=== PATIENT | male | born 1945 | race African-American/Black ===

== ENCOUNTER → 2017-02-19 | Outpatient (CLI) | payer MEDICARE ==
--- NOTE | 2017-02-19 12:45 | RADIOLOGY REPORT (SQ) ---
EXAM DESCRIPTION: KNEE LEFT 4 VIEWS COMPLETED DATE/TIME: 02/19/2017 11:53 am REASON FOR STUDY: PAIN IN LEFT KNEE M25.562 PAIN IN LEFT KNEE R07.89 OTHER CHEST PAIN COMPARISON: None. NUMBER OF VIEWS: Four views. TECHNIQUE: AP, lateral, and both oblique radiographic images acquired of the left knee. LIMITATIONS: None. FINDINGS: MINERALIZATION: Mild osteopenia BONES: No acute fracture or dislocation. No worrisome bone lesions. No significant osteophytes. JOINT: No joint effusion. Moderate to severe degenerative compromise medial joint compartment. Renetta re degenerative narrowing patellofemoral joint. OTHER: No other significant finding. IMPRESSION: No acute findings. Moderate to severe degenerative compromise medial joint compartment and severe degenerative narrowing patellofemoral joint. TECHNICAL DOCUMENTATION: JOB ID: [id number] [employer]- All Rights Reserved
--- NOTE | 2017-02-19 12:46 | RADIOLOGY REPORT (SQ) ---
EXAM DESCRIPTION: CHEST PA/LATERAL COMPLETED DATE/TIME: 02/19/2017 11:53 am REASON FOR STUDY: OTHER CHEST PAIN COMPARISON: 05/17/2011 NUMBER OF VIEWS: Two view. TECHNIQUE: Frontal and lateral radiographic views of the chest acquired. LIMITATIONS: None. FINDINGS: LUNGS AND PLEURA: No opacities, masses or pneumothorax. No pleural effusion. MEDIASTINUM AND HILAR STRUCTURES: No masses or contour abnormalities. HEART AND VASCULATURE: Heart normal size. No evidence for failure. BONY STRUCTURES: No acute findings. HARDWARE: None. OTHER: No other significant finding. IMPRESSION: NO SIGNIFICANT RADIOGRAPHIC FINDING IN THE CHEST. TECHNICAL DOCUMENTATION: JOB ID: [id number] [employer]- All Rights Reserved
== END ==
LOC: OD 11:11
PROVIDERS: ATTEND Family Medicine
DX: M25.562 Pain in left knee (principal); R07.89 Other chest pain
CPT/HCPCS: 71020

== ENCOUNTER 2020-02-05 10:19 | Emergency (ER) | payer MEDICARE, OTHER ==
[2020-02-05] MEDS ORDERED: DILTIAZEM HCL/D5W 125 MG/125 ML RTUINJ IV PRN (11:11)
[2020-02-05] MEDS ORDERED: DILTIAZEM HCL INJ 25 MG/5 ML VIAL IV ONE (11:11)
[2020-02-05 11:33] LABS: INTERNATIONAL RATION (INR) 1.18; PROTHROMBIN TIME 15.2 SEC (11.4-15.4)
[2020-02-05 11:34] LABS: PARTIAL THROMBOPLASTIN TIME 33.3 SEC (23.5-35.8)
[2020-02-05 11:44] LABS: ABSOLUTE EOSINOPHILS # (AUTO) 0.1 10^3/uL (0.0-0.6); ABSOLUTE LYMPHOCYTES (AUTO) 0.6 10^3/uL (0.5-4.7); ABSOLUTE MONOCYTES (AUTO) 0.4 10^3/uL (0.1-1.4); ABSOLUTE NEUT (AUTO) 3.4 10^3/uL (1.7-8.2); BASOPHILS % (AUTO) 0.6 % (0-2); EOSINOPHILS % (AUTO) 2.4 % (0-6); HEMATOCRIT 36.8 % (37.9-51.0); MEAN CORPUSCULAR HEMOGLOBIN 27.6 pg (27.0-33.4); MEAN CORPUSCULAR HGB CONC 32.6 g/dL (32.0-36.0); MEAN CORPUSCULAR VOLUME 85 fl (80-97); MONOCYTES % (AUTO) 8.1 % (3-13); PLATELET COUNT 232 10^3/uL (150-450); RED BLOOD COUNT 4.35 10^6/uL (4.35-5.55); RED CELL DISTRIBUTION WIDTH 15.7 % (11.5-14.0); SEGMENTED NEUTROPHILS % (AUTO) 75.9 % (42-78); TOTAL CELLS COUNTED % (AUTO) 100 %; WHITE BLOOD COUNT 4.5 10^3/uL (4.0-10.5)
[2020-02-05 11:48] LABS: ALBUMIN 3.9 g/dL (3.5-5.0); ALKALINE PHOSPHATASE 81 U/L (38-126); ANION GAP 8 (5-19); ASPARTATE AMINO TRANSFERASE 70 U/L (17-59); BILIRUBIN,DIRECT 0.3 mg/dL (0.0-0.4); BILIRUBIN,TOTAL 0.9 mg/dL (0.2-1.3); BLOOD UREA NITROGEN 19 mg/dL (7-20); CALCIUM 9.7 mg/dL (8.4-10.2); CARBON DIOXIDE 24 mmol/L (22-30); CHLORIDE 106 mmol/L (98-107); CREATINE KINASE 174 U/L (55-170); GLUCOSE 149 mg/dL (75-110); POTASSIUM 4.1 mmol/L (3.6-5.0); TOTAL PROTEIN 6.5 g/dL (6.3-8.2)
--- NOTE | 2020-02-05 11:49 | RADIOLOGY REPORT (SQ) ---
EXAM DESCRIPTION: CHEST SINGLE VIEW IMAGES COMPLETED DATE/TIME: 02/05/2020 11:27 am REASON FOR STUDY: cp COMPARISON: 02/19/2017 EXAM PARAMETERS: NUMBER OF VIEWS: One view. TECHNIQUE: Single frontal radiographic view of the chest acquired. RADIATION DOSE: NA LIMITATIONS: None. FINDINGS: LUNGS AND PLEURA: No opacities, masses or pneumothorax. No pleural effusion. MEDIASTINUM AND HILAR STRUCTURES: No masses. Contour normal. HEART AND VASCULAR STRUCTURES: Heart normal in size. Normal vasculature. BONES: No acute findings. HARDWARE: None in the chest. OTHER: No other significant finding. IMPRESSION: NO ACUTE RADIOGRAPHIC FINDING IN THE CHEST. TECHNICAL DOCUMENTATION: JOB ID: [id number] 2010 [employer]- All Rights Reserved Reading location - IP/workstation name: [email or web address]
[2020-02-05 11:59] LABS: CREATINE KINASE MB 4.71 ng/mL (<4.55); TROPONIN I 0.02 ng/mL
--- NOTE | 2020-02-05 13:49 | ER Document Report ---
ED General - General Chief Complaint: Chest Tightness Stated Complaint: CHEST TIGHTNESS Time Seen by Provider: 02/05/20 11:04 Primary Care Provider: MARTELL BLOCK DO [Primary Care Provider] - Follow up as needed TRAVEL OUTSIDE OF THE [place] IN LAST 30 DAYS: No - HPI Notes: Chief complaint: Shortness of breath, chest tightness and rapid heartbeat History of present illness: Mr. Santosh James is a 74-year-old male who pres ents today having awakened this morning with palpitations, chest tightness and dyspnea with minimal exertion. This man has a history of prostatic CA and was apparently recently admitted to the urology service at [facility] for a cystoscopy. He was found to be in new atrial fibrillation asymptomatic at that time and was apparently seen by cardiology for cardioversion. He apparently went back into atrial fibrillation and was subsequently discharged home on diltiazem 120 mg twice daily. He has an outpatient appointment to see a filler shredder helper for follow-up but is unable to tell me the filler shredder helper name. He was not entirely sure of his other current medications. He is a very poor historian. Patient states that prior to his recent episode of atrial fib he is not aware of any history of heart disease. He does have a history of hypertension. He is type II diabetic. He is a former smoker. There is cardiac disease in his family. He denies any known history of thromboembolic disease. - Related Data Allergies/Adverse Reactions: No Known Allergies Allergy (Verified 04/08/16 05:32) Home Medications: Cardizem 60mg 2 tabs twice daily. Eliquis 5mg BID. Aspirin 81mg daily. Atorvastatin 40mg 1/2 tab hs. Eligard testosterone q 6months. Metformin 500 BID. Zytgia 1 in am. Prednisonce 1 AM Past Medical History - General Information source: Patient Cannot obtain history due to: Other - Extremely poor historian - Social History Smoking Status: Never Smoker Chew tobacco use (# tins/day): No Frequency of alcohol use: None Drug Abuse: None Family History: Reviewed & Not Pertinent - Past Medical History Cardiac Medical History: Reports: Hx Hypercholesterolemia, Hx Hypertension Endocrine Medical History: Reports: Hx Diabetes Mellitus Type 2 Past Surgical History: Reports: Hx Tonsillectomy - Immunizations Hx Diphtheria, Pertussis, Tetanus Vaccination: Yes Review of Systems - Review of Systems Notes: Constitutional: Negative for fever. HENT: Negative for sore throat. Eyes: Negative for visual changes. Cardiovascular: As per HPI. Respiratory: As per HPI. Gastrointestinal: Negative for abdominal pain, vomiting or diarrhea. Genitourinary: Negative for dysuria. Musculoskeletal: Negative for back pain. Skin: Negative for rash. Neurological: Negative for headaches, weakness or numbness. 10 point ROS negative except as marked above and in HPI. Physical Exam - Vital signs Vitals: Pulse Ox 100 02/05/20 10:46 - Notes Notes: GENERAL: Well-developed well-nourished male approximately stated age appearing mildly anxious. SKIN: Good turgor no rashes. HEAD: Normocephalic atraumatic. EYES: PERRLA. EOMI. Conjunctivae and sclerae clear. EARS: CANALS AND TMS CLEAR. NOSE: CLEAR. MOUTH: Moist mucosa. Good dentition. No stridor or edema. No drooling. NECK: Supple. No masses or thyromegaly. No adenopathy. Carotids 2+ without b ruits. No JVD. BACK: Symmetrical without tenderness. CHEST: Respirations unlabored. Breath sounds clear and symmetrical. HEART: Tachycardic irregularly irregular rhythm. No murmur gallop or rub. ABDOMEN: Soft nontender without masses, organomegaly or rebound. Bowel sounds normally active. No bruits. GENITALIA: Deferred. EXTREMITIES: No edema. No calf tenderness. Cap refill less than 1.5 seconds. Dorsalis pedis and posterior tibial pulses 3+ and symmetrical. NEUROLOGICAL: GCS 15. Alert and oriented x3. Fluent speech. Cranial nerves II through XII intact. Sensorimotor and cerebellar normal. Normal tone. PSYCHIATRIC: Appropriate affect. Course - Re-evaluation Re-evalutation: 02/05/20 13:53 IV diltiazem bolus and drip initiated for rate control. 02/05/20 15:58 Patient has had troponin values which are normal 3 hours apart. He has had no chest discomfort here and is symptomatically improved since we reduced his rate below 100. He remains in atrial fibrillation. I was able to speak with his treating filler shredder helper Dr. Juarez at [facility]. He recommends that we increase his oral diltiazem dose for rate control and have him follow-up in the office in [place] as previously sc heduled for February 11. This was discussed with patient and he is agreeable. 02/05/20 16:06 Findings, clinical impression and plan of treatment have been discussed with patient/family. Understanding of current findings and recommendations has been acknowledged by them and there is agreement regarding disposition and follow-up. - Vital Signs Vital signs: Temp Pulse Resp BP Pulse Ox 98.1 F 24 H 120/86 H 97 02/05/20 14:01 02/05/20 14:11 02/05/20 14:01 02/05/20 14:11 - Laboratory Result Diagrams: 02/05/20 11:00 02/05/20 11:00 Laboratory results interpreted by me: 02/05/20 02/05/20 02/05/20 11:00 11:00 11:00 Hgb 12.0 L Hct 36.8 L RDW 15.7 H D-Dimer Glucose 149 H AST 70 H ALT 91 H Creatine Kinase 174 H CK-MB (CK-2) 4.71 H NT-Pro-B Natriuret Pep Urine Protein Urine Blood 02/05/20 02/05/20 02/05/20 11:00 11:00 13:48 Hgb Hct RDW D-Dimer 0.57 H Glucose AST ALT Creatine Kinase CK-MB (CK-2) NT-Pro-B Natriuret Pep 4750 H Urine Protein 100 H Urine Blood LARGE H - Diagnostic Test Radiology reviewed: Reports reviewed - Normal portable chest x-ray per radiologist. - EKG Interpretation by Me Additional EKG results interpreted by me: 02/05/20 13:54 EKG #1twelve-lead EKG reviewed by me contemporaneously: 1030 hrs. Indication for study: Tachycardia Rhythm: Atrial fibrillation Rate: 152 Intervals: Normal QRS axis: -[address]/T wave changes: Nonspecific anterolateral T wave changes. No ST deviation. Comparison with prior tracing: Comparison with prior study from 04/08/2026 shows new atrial fibrillation Interpretation: Atrial fibrillation with rapid ventricular response and nonspecific anterolateral T wave changes EKG #2twelve-lead EKG reviewed by me contemporaneously: Indication for study: Atrial fibrillation Rhythm: Atrial fibrillation Rate: 96 Intervals: QRS axis: -[address]/T wave changes: Nonspecific anterolateral T wave changes. No ST deviation. Comparison with prior tracing: Comparison with tracing from 1030 hrs. this date demonstrates slowing of ventricular response. Interpretation: Atrial fibrillation with controlled ventricular response Critical Care Note - Critical Care Note Total time excluding time spent on procedures (mins): 35 - IV diltiazem bolus and drip for rate control atrial fibrillation Discharge - Discharge Clinical Impression: Atrial fibrillation Qualifiers: Atrial fibrillation type: persistent (not longstanding) Qualified Code(s): I48.19 - Other persistent atrial fibrillation; I48.1 - Persistent atrial fibrillation Condition: Stable Disposition: HOME, SELF-CARE Additional Instructions: Return here as needed for new or worsening symptoms. Increase your diltiazem (Cardizem) 60 mg tablet to a dosage of 2 tablets 3 times daily. Follow-up with your filler shredder helper in the [place] office on February 11 as previously arranged. Prescriptions: Diltiazem HCl [Cardizem 60 mg Tablet] 120 mg PO TID 30 Days #180 tablet Referrals: MARTELL BLOCK DO [Primary Care Provider] - Follow up as needed
[2020-02-05 14:30] LABS: APPEARANCE,URINE SLIGHTLY-CLOUDY; BILIRUBIN,URINE NEGATIVE (NEGATIVE); CALCIUM OXALATE CRYSTALS,URINE FEW /HPF; COLOR,URINE YELLOW; GLUCOSE, URINE NEGATIVE (NEGATIVE); KETONES,URINE NEGATIVE (NEGATIVE); LEUKOCYTE ESTERASE,URINE NEGATIVE (NEGATIVE); NITRITE,URINE NEGATIVE (NEGATIVE); PROTEIN,URINE 100 mg/dL (NEGATIVE); URINE SPECIFIC GRAVITY 1.028; UROBILINOGEN,URINE NEGATIVE mg/dL (<2.0)
[2020-02-05] MEDS ORDERED: DILTIAZEM HCL 60 MG TABLET PO ONE (15:54)
[2020-02-05 18:41] VITALS: BP 112/92
--- NOTE | 2020-02-05 21:33 | EKG REPORT ---
SEVERITY:- ABNORMAL ECG - ATRIAL FIBRILLATION, V-RATE 72-111 LEFT AXIS DEVIATION BORDERLINE T ABNORMALITIES, DIFFUSE LEADS : Confirmed by: Jerri Alvarez MD 05-Feb-2020 21:32:59
--- NOTE | 2020-02-05 21:33 | EKG REPORT ---
SEVERITY:- ABNORMAL ECG - ATRIAL FIBRILLATION WITH RAPID V-RATE LEFT AXIS DEVIATION BORDERLINE T WAVE ABNORMALITIES : Confirmed by: Jerri Alvarez MD 05-Feb-2020 21:33:04
== END 2020-02-05 18:43 | disposition home or self-care (01) ==
LOC: ER 10:19
DX: I48.19 Other persistent atrial fibrillation (principal); R07.89 Other chest pain; R00.0 Tachycardia, unspecified; R00.2 Palpitations; R06.00 Dyspnea, unspecified; I10 Essential (primary) hypertension; E11.9 Type 2 diabetes mellitus without complications; E78.00 Pure hypercholesterolemia, unspecified; Z79.899 Other long term (current) drug therapy; Z79.01 Long term (current) use of anticoagulants; Z79.82 Long term (current) use of aspirin; Z79.84 Long term (current) use of oral hypoglycemic drugs; Z79.52 Long term (current) use of systemic steroids; Z85.46 Personal history of malignant neoplasm of prostate
CPT/HCPCS: 93005; 99285; 96375; 96365; 96366; 36415; 82553; 80307; 82550; 83735; 84443; 85025; 85610; 85730; 80053; 81001; 84484; 85379; 83880; 71045; 93010; A9270; J3490 ×2

== ENCOUNTER 2020-02-27 07:48 | Emergency (ER) | payer MEDICARE, OTHER ==
--- NOTE | 2020-02-27 10:27 | RADIOLOGY REPORT (SQ) ---
EXAM DESCRIPTION: KNEE LEFT 4 VIEW IMAGES COMPLETED DATE/TIME: 02/27/2020 9:53 am REASON FOR STUDY: pain/swelling COMPARISON: None. NUMBER OF VIEWS: Four views. TECHNIQUE: AP, lateral, and both oblique radiographic images acquired of the left knee. LIMITATIONS: None. FINDINGS: MINERALIZATION: Normal. BONES: No acute fracture or dislocation. No worrisome bone lesions. JOINT: Large suprapatellar knee joint effusion. High-grade patellofemoral compartment joint space narrowing with bony spurring. Moderate medial and lateral compartment joint space narrowing and bony spurring. SOFT TISSUES: No soft tissue swelling. No radio-opaque foreign body. OTHER: No other significant finding. IMPRESSION: Large suprapatellar knee joint effusion. Osteoarthritis No acute fracture or malalignment TECHNICAL DOCUMENTATION: JOB ID: [id number] [employer]- All Rights Reserved Reading location - IP/workstation name: [email or web address]
[2020-02-27] MEDS ORDERED: DEXAMETHASONE 4 MG TABLET PO ONE (11:35)
--- NOTE | 2020-02-27 11:51 | ER Document Report ---
Entered by SHANNON ROYAL SCRIBE 02/27/20 0938 Acting as scribe for:CASANDRA ROCHA MD ED Extremity Problem, Lower - General Chief Complaint: Knee Pain Stated Complaint: LEFT KNEE PAIN Time Seen by Provider: 02/27/20 08:01 Primary Care Provider: MARTELL BLOCK DO [Primary Care Provider] - Follow up as needed Mode of Arrival: Ambulatory Information source: Patient Notes: This 74-year-old male patient presents to the emergency department today with complaints of left knee swelling and pain for the last week. Patient states he does not have a history of gout or arthritis but "did play quite a bit of football in his younger days". Left knee is grossly swollen and is warm to the touch. TRAVEL OUTSIDE OF THE [place] IN LAST 30 DAYS: No - Related Data Allergies/Adverse Reactions: No Known Allergies Allergy (Verified 04/08/16 05:32) Home Medications: cardizem. lasix. eliquis. Vitamin D Past Medical History - General Information source: Patient - Social History Smoking Status: Never Smoker Cigarette use (# per day): No Chew tobacco use (# tins/day): No Frequency of alcohol use: None Drug Abuse: None Lives with: Family Family History: Reviewed & Not Pertinent - Past Medical History Cardiac Medical History: Reports: Hx Atrial Fibrillation, Hx Hypercholesterolemia, Hx Hypertension Endocrine Medical History: Reports: Hx Diabetes Mellitus Type 2 Past Surgical History: Reports: Hx Tonsillectomy - Immunizations Hx Diphtheria, Pertussis, Tetanus Vaccination: Yes Review of Systems - Review of Systems Constitutional: No symptoms reported EENT: No symptoms reported Cardiovascular: No symptoms reported Respiratory: No symptoms reported Gastrointestinal: No symptoms reported Genitourinary: No symptoms reported Male Genitourinary: No symptoms reported Musculoskeletal: See HPI, Joint pain - left knee Skin: No symptoms reported Hematologic/Lymphatic: No symptoms reported Neurological/Psychological: No symptoms reported -: Yes All other systems reviewed and negative Physical Exam - Vital signs Vitals: Temp Pulse Resp BP Pulse Ox 97.7 F 116 H 18 144/119 H 98 02/27/20 07:57 02/27/20 07:57 02/27/20 07:57 02/27/20 07:57 02/27/20 07:57 - Notes Notes: Physical Exam: General: Alert, appears well. HEENT: Normocephalic. Atraumatic. PERRL. Extraocular movements intact. Oropharynx clear. Neck: Supple. Non-tender. Respiratory: No respiratory distress. Clear and equal breath sounds bilaterally. Cardiovascular: Regular rate and rhythm. Abdominal: Obese. Non-tender. No distension. Normal Bowel Sounds. Back: No gross abnormalities. Extremities: Moves all four extremities. Upper extremities: Normal inspection. Normal ROM. Lower extremities: Left knee is grossly swollen, hot to the touch, and tender to palpation laterally. Neurological: Normal cognition. AAOx4. Normal speech. Psychological: Normal affect. Normal Mood. Skin: Warm. Dry. Normal color. Course - Re-evaluation Re-evalutation: 02/27/20 11:38 Patient sitting in chair resting comfortably. - Vital Signs Vital signs: Temp Pulse Resp BP Pulse Ox 97.7 F 116 H 18 144/119 H 98 02/27/20 07:57 02/27/20 07:57 02/27/20 07:57 02/27/20 07:57 02/27/20 07:57 02/27/20 11:39 Vital signs shows systolic diastolic hypertension and tachycardia. - Diagnostic Test Radiology reviewed: Image reviewed, Reports reviewed Radiology results interpreted by me: 02/27/20 11:39 Knee X-Ray 02/27/20 09:23 IMPRESSION: Large suprapatellar knee joint effusion. Osteoarthritis No acute fracture or malalignment Left knee shows a large suprapatellar knee joint effusion and osteoarthritis significant no acute fracture or malalignment. Discharge - Discharge Clinical Impression: Osteoarthritis left knee with effusion Condition: Stable Disposition: HOME, SELF-CARE Additional Instructions: Osteoarthritis Your symptoms are due to osteoarthritis. Osteoarthritis is inflammation caused by "wear and tear" of the joints. There is no cure for osteoarthritis, but medicine can help the pain and stiffness. It's important to keep the joints moving. Move the joints through their full range daily. Light exercise helps, but if exercise hurts, switch to a non-impact exercise like swimming. Local warmth may help ease pain. Call or return if any joint becomes severely swollen or increasingly painful, or if you have fever or spreading redness. Prescriptions: Hydrocodone/Acetaminophen [Hydrocodone-Acetamin 5-300 mg] 1 each PO QID PRN 2 Days #10 tablet PRN Reason: left knee pain Referrals: MARTELL BLOCK DO [Primary Care Provider] - Follow up as needed NANCY RENDON MD [ACTIVE STAFF] - Follow up in 1 week I personally performed the services described in the documentation, reviewed and edited the documentation which was dictated to the scribe in my presence, and it accurately records my words and actions.
[2020-02-27 12:12] VITALS: BP 121/76
== END 2020-02-27 12:12 | disposition home or self-care (01) ==
LOC: ER 07:48
DX: M17.12 Unilateral primary osteoarthritis, left knee (principal); M25.462 Effusion, left knee; R00.0 Tachycardia, unspecified; I48.91 Unspecified atrial fibrillation; I10 Essential (primary) hypertension; E11.9 Type 2 diabetes mellitus without complications; Z79.899 Other long term (current) drug therapy; Z79.01 Long term (current) use of anticoagulants
CPT/HCPCS: 99283; 73564; A9270; J8540

== ENCOUNTER 2020-04-03 07:18 | Emergency (ER) | payer OTHER, MEDICARE ==
[2020-04-03] MEDS ORDERED: ACETAMINOPHEN 325 MG TABLET PO ONE (09:04)
--- NOTE | 2020-04-03 09:06 | ER Document Report ---
ED Extremity Problem, Lower - General Stated Complaint: SWOLLEN ANKLE/LEG Time Seen by Provider: 04/03/20 08:23 Primary Care Provider: MARTELL BLOCK DO [Primary Care Provider] - Follow up tomorrow Mode of Arrival: Ambulatory Information source: Patient Notes: Patient presents complaining of bilateral lower extremity swelling. Patient states that he was prescribed Lasix and stop the medication 4 days ago as he was advised to as he was losing too much weight while taking the medication. Patient does admit to increased sodium in his diet recently. Patient denies any long distance travel, history of DVT or PE. Patient denies any fever, chest pain or dyspnea. Patient denies any cough. Patient does complain of some pain to the right foot and ankle. Patient denies any injury to this foot. TRAVEL OUTSIDE OF THE [place] IN LAST 30 DAYS: No - HPI Patient complains to provider of: Pain - Right foot and ankle, Swelling - B ilateral lower extremities. No: Altered sensation Occurred: Other - 4 days Onset/Duration: Worse Quality of pain: Achy Pain Level: 3 Associated symptoms: Painful ambulation. denies: Chills, Dizzy, Fainting, Fever, Rapid heart rate, Short of breath Exacerbated by: Walking Relieved by: Nothing - Related Data Allergies/Adverse Reactions: No Known Allergies Allergy (Verified 04/08/16 05:32) Past Medical History - General Information source: Patient - Social History Smoking Status: Never Smoker Frequency of alcohol use: None Drug Abuse: None Family History: Reviewed & Not Pertinent - Past Medical History Cardiac Medical History: Reports: Hx Atrial Fibrillation, Hx Hypercholesterolemia, Hx Hypertension Denies: Hx Congestive Heart Failure Endocrine Medical History: Reports: Hx Diabetes Mellitus Type 2 Malignancy Medical History: Reports Hx Prostate Cancer Past Surgical History: Reports: Hx Cardiac Catheterization, Hx Tonsillectomy, Other - Circumcision - Immunizations Hx Diphtheria, Pertussis, Tetanus Vaccination: Yes Review of Systems - Review of Systems Constitutional: No symptoms reported. denies: Fever EENT: No symptoms reported Cardiovascular: No symptoms reported. denies: Chest pain, Dizziness, Lightheaded Respiratory: No symptoms reported. denies: Cough, Short of breath Gastrointestinal: No symptoms reported. denies: Nausea, Vomiting Genitourinary: No symptoms reported Male Genitourinary: No symptoms reported Musculoskeletal: Joint pain - Right foot and ankle pain, Leg swelling - Bilateral lower extremities, right worse than left. denies: Back pain Skin: No symptoms reported Hematologic/Lymphatic: No symptoms reported Neurological/Psychological: No symptoms reported Physical Exam - Vital signs Vitals: Temp Pulse BP Pulse Ox 97.4 F 84 120/83 98 04/03/20 07:36 04/03/20 07:36 04/03/20 07:36 04/03/20 07:36 - General General appearance: Appears well, Alert In distress: None - HEENT Head: Normocephalic, Atraumatic Eyes: Normal Conjunctiva: Normal Nasal: Normal Mouth/Lips: Normal Mucous membranes: Normal Neck: Normal, Supple. No: Lymphadenopathy - Respiratory Respiratory status: No respiratory distress Chest status: Nontender Breath sounds: Normal. No: Rales, Rhonchi, Stridor, Wheezing Chest palpation: Normal - Cardiovascular Rhythm: Regular Heart sounds: S1 appreciated, S2 appreciated Pulses: Normal: Radial - Abdominal Inspection: Obese Tenderness: Nontender - Back Back: Normal, Nontender. No: CVA tenderness - Extremities General upper extremity: Normal inspection, Normal ROM General lower extremity: Tender - Right foot and ankle, Edema - 2+ to right lower extremity, 1+ to left lower extremity 3+ to right foot Ankle: Tender - Right ankle tenderness with edema, Edema Foot: Tender - Right foot tenderness, Edema, Unable to bear weight - Neurological Neuro grossly intact: Yes Cognition: Normal Orientation: AAOx4 [place] Coma Scale Eye Opening: Spontaneous [place] Coma Scale Verbal: Oriented [place] Coma Scale Motor: Obeys Commands [place] Coma Scale Total: 15 - Psychological Associated symptoms: Normal affect, Normal mood - Skin Skin Temperature: Warm Skin Moisture: Dry Skin Color: Normal Course - Re-evaluation Re-evalutation: 04/03/20 11:45 Patient does admit to increased salt in his diet recently. Patient with bilate ral lower extremity edema, right worse than left, patient has right foot and ankle pain. X-rays without any acute bony abnormality, no arterial vascular issues, no concern for DVT, patient without any pain to the calf or thigh. Skin color normal temperature without any calor, no concern for cellulitis at this time. Patient does have elevated BNP and takes heart failure medications although denies any known history of heart failure. Patient states that he does have Lasix at home. Patient advised that he could take a dose of the Lasix to help with his edema. Patient educated on use of BERTRAND stockings. Patient educated on diet. Patient declines any diuretic at this time but would like the BERTRAND hose. - Vital Signs Vital signs: Temp Pulse Resp BP Pulse Ox 97.7 F 80 16 149/87 H 96 04/03/20 12:38 04/03/20 12:38 04/03/20 12:38 04/03/20 12:38 04/03/20 12:38 - Laboratory Result Diagrams: 04/03/20 09:27 04/03/20 09:27 Laboratory results interpreted by me: 04/03/20 04/03/20 04/03/20 09:27 09:27 09:27 Hgb 12.0 L Hct 36.7 L RDW 16.6 H Potassium 3.5 L Glucose 119 H Uric Acid 3.2 L NT-Pro-B Natriuret Pep 8380 H Labs- All tests 24 hr 04/03/20 04/03/20 04/03/20 09:27 09:27 09:27 WBC 5.5 RBC 4.39 Hgb 12.0 L Hct 36.7 L MCV 84 MCH 27.3 MCHC 32.7 RDW 16.6 H Plt Count 186 Lymph % (Auto) 14.8 [place] % (Auto) 8.1 Eos % (Auto) 3.0 Baso % (Auto) 0.4 Absolute Neuts (auto) 4.1 Absolute Lymphs (auto) 0.8 Absolute Monos (auto) 0.4 Absolute Eos (auto) 0.2 Absolute Basos (auto) 0.0 Seg Neutrophils % 73.7 Sodium 138.3 Potassium 3.5 L Chloride 105 Carbon Dioxide 27 Anion Gap 6 BUN 13 Creatinine 0.74 Est GFR ( Amer) > 60 Est GFR (MDRD) Non-Af > 60 Glucose 119 H Uric Acid 3.2 L Calcium 9.4 Total Bilirubin 1.0 Direct Bilirubin 0.0 Neonat Total Bilirubin Not Reportable Neonat Direct Bilirubin Not Reportable Neonat Indirect Bili Not Reportable AST 24 ALT 27 Alkaline Phosphatase 84 NT-Pro-B Natriuret Pep 8380 H Total Protein 6.8 Albumin 3.8 - Diagnostic Test Radiology reviewed: Reports reviewed Discharge - Discharge Clinical Impression: Peripheral edema, Right foot pain Condition: Stable Disposition: HOME, SELF-CARE Instructions: Edema, Peripheral ([facility]) Additional Instructions: Return immediately for any new or worsening symptoms Followup with your primary care provider, call tomorrow to make a followup appointment Limit salt in your diet as this can lead to increased swelling to the extremity Wear the BERTRAND stockings to help with swelling to the lower extremities. Referrals: MARTELL BLOCK, [Primary Care Provider] - Follow up tomorrow
--- NOTE | 2020-04-03 09:37 | RADIOLOGY REPORT (SQ) ---
EXAM DESCRIPTION: ANKLE RIGHT COMPLETE IMAGES COMPLETED DATE/TIME: 04/03/2020 9:19 am REASON FOR STUDY: r foot/ankle pain/swelling COMPARISON: None. EXAM PARAMETERS: NUMBER OF VIEWS: Three views. TECHNIQUE: AP, lateral and oblique radiographic images acquired of the right foot. LIMITATIONS: None. FINDINGS: MINERALIZATION: Osteopenia. BONES: No acute fracture or dislocation. No worrisome bone lesions. JOINTS: No effusion. SOFT TISSUES: No significant soft tissue swelling. No radiopaque foreign body. OTHER: No other significant finding. IMPRESSION: NO FRACTURE. TECHNICAL DOCUMENTATION: JOB ID: [id number] 2010 [employer]- All Rights Reserved Reading location - IP/workstation name: [email or web address]
--- NOTE | 2020-04-03 09:38 | RADIOLOGY REPORT (SQ) ---
EXAM DESCRIPTION: FOOT RIGHT COMPLETE IMAGES COMPLETED DATE/TIME: 04/03/2020 9:19 am REASON FOR STUDY: r foot/ankle pain/swelling COMPARISON: None. EXAM PARAMETERS: NUMBER OF VIEWS: Three views. TECHNIQUE: AP, lateral and oblique radiographic images acquired of the right foot. LIMITATIONS: None. FINDINGS: MINERALIZATION: Osteopenia. BONES: No acute fracture or dislocation. Moderate bunion deformity. No worrisome bone lesions. JOINTS: No effusion. SOFT TISSUES: No significant soft tissue swelling. No radiopaque foreign body. OTHER: No other significant finding. IMPRESSION: NO FRACTURE. TECHNICAL DOCUMENTATION: JOB ID: [id number] [place]-72 2010 [employer]- All Rights Reserved Reading location - IP/workstation name: [employer]
--- NOTE | 2020-04-03 09:39 | RADIOLOGY REPORT (SQ) ---
EXAM DESCRIPTION: CHEST SINGLE VIEW IMAGES COMPLETED DATE/TIME: 04/03/2020 9:19 am REASON FOR STUDY: peripheral edema COMPARISON: 02/05/2020 TECHNIQUE: Single frontal radiographic view of the chest acquired. NUMBER OF VIEWS: One view. LIMITATIONS: None. FINDINGS: LUNGS AND PLEURA: No pneumothorax. No consolidation or pleural effusion. MEDIASTINUM AND HILAR STRUCTURES: Stable. HEART AND VASCULAR STRUCTURES: Stable. BONES: No acute findings. HARDWARE: None in the chest. OTHER: No other significant finding. IMPRESSION: NO ACUTE FINDINGS. TECHNICAL DOCUMENTATION: JOB ID: [id number] [place]-[id number] 2010 [employer]- All Rights Reserved Reading location - IP/workstation name: [email or web address]
[2020-04-03 10:08] LABS: ABSOLUTE EOSINOPHILS # (AUTO) 0.2 10^3/uL (0.0-0.6); ABSOLUTE LYMPHOCYTES (AUTO) 0.8 10^3/uL (0.5-4.7); ABSOLUTE MONOCYTES (AUTO) 0.4 10^3/uL (0.1-1.4); ABSOLUTE NEUT (AUTO) 4.1 10^3/uL (1.7-8.2); BASOPHILS % (AUTO) 0.4 % (0-2); HEMATOCRIT 36.7 % (37.9-51.0); LYMPHOCYTES % (AUTO) 14.8 % (13-45); MEAN CORPUSCULAR HEMOGLOBIN 27.3 pg (27.0-33.4); MEAN CORPUSCULAR HGB CONC 32.7 g/dL (32.0-36.0); MEAN CORPUSCULAR VOLUME 84 fl (80-97); MONOCYTES % (AUTO) 8.1 % (3-13); PLATELET COUNT 186 10^3/uL (150-450); RED BLOOD COUNT 4.39 10^6/uL (4.35-5.55); RED CELL DISTRIBUTION WIDTH 16.6 % (11.5-14.0); SEGMENTED NEUTROPHILS % (AUTO) 73.7 % (42-78); TOTAL CELLS COUNTED % (AUTO) 100 %; WHITE BLOOD COUNT 5.5 10^3/uL (4.0-10.5)
[2020-04-03 10:26] LABS: ALBUMIN 3.8 g/dL (3.5-5.0); ALKALINE PHOSPHATASE 84 U/L (38-126); ANION GAP 6 (5-19); ASPARTATE AMINO TRANSFERASE 24 U/L (17-59); BLOOD UREA NITROGEN 13 mg/dL (7-20); CALCIUM 9.4 mg/dL (8.4-10.2); CARBON DIOXIDE 27 mmol/L (22-30); CHLORIDE 105 mmol/L (98-107); GLUCOSE 119 mg/dL (75-110); POTASSIUM 3.5 mmol/L (3.6-5.0); TOTAL PROTEIN 6.8 g/dL (6.3-8.2); URIC ACID 3.2 mg/dL (3.5-8.5)
--- NOTE | 2020-04-03 11:38 | RADIOLOGY REPORT (SQ) ---
EXAM DESCRIPTION: ARTERIAL LOWER EXTREM UNILAT IMAGES COMPLETED DATE/TIME: 04/03/2020 11:28 am REASON FOR STUDY: R foot pain COMPARISON: None. TECHNIQUE: Dynamic and static schaefer scale and color images acquired of the right lower extremity lewis marcelo. Additional selected spectral images recorded. LIMITATIONS: None. FINDINGS: RIGHT LEG: INFLOW ARTERIES: Normal, no obstruction evident. FEMORAL ARTERIES:Triphasic waveforms. Normal, no velocity elevation to suggest focal stenosis. Normal color Doppler evaluation. No aneurysm. POPLITEAL ARTERY:Triphasic waveforms. Normal, no velocity elevation to suggest focal stenosis. Normal color Doppler evaluation. No aneurysm. PATENT TIBIOPERONEAL TRUNK AND 3 VESSEL RUNOFF: Yes, normal vessels. OTHER: No other significant finding. IMPRESSION: NORMAL RIGHT LOWER EXTREMITY ARTERIAL DOPPLER. TECHNICAL DOCUMENTATION: JOB ID: [id number] 2010 [employer]- All Rights Reserved Reading location - IP/workstation name: [email or web address]
[2020-04-03 12:44] VITALS: BP 149/87
== END 2020-04-03 12:44 | disposition home or self-care (01) ==
LOC: ER 07:18
DX: R60.0 Localized edema (principal); M79.671 Pain in right foot; M25.571 Pain in right ankle and joints of right foot; E11.9 Type 2 diabetes mellitus without complications; I10 Essential (primary) hypertension
CPT/HCPCS: 36415; 71045; 80053; 83880; 84550; 85025; 93926; 99285

== ENCOUNTER 2020-04-03 23:34 | Emergency (ER) | payer OTHER, MEDICARE ==
[2020-04-03] MEDS ORDERED: ETOMIDATE INJ/PF 20 MG/10 ML SDV IV ONE ×2 (23:45→23:57)
[2020-04-03] MEDS ORDERED: VECURONIUM BROMIDE INJ 10 MG VIAL IV ONE (23:45)
[2020-04-03] MEDS ORDERED: LORAZEPAM INJ 2 MG/1 ML VIAL IV ONE (23:46)
[2020-04-04] MEDS ORDERED: SUCCINYLCHOLINE CHLORIDE INJ 200 MG/10 ML VIAL IV ONE (00:03)
[2020-04-04] MEDS ORDERED: DEXTROSE 5%-WATER 250 ML with NOREPINEPHRINE BITARTRATE 4 MG IV PRN ×2 (00:07)
[2020-04-04] MEDS ORDERED: VECURONIUM BROMIDE INJ 10 MG VIAL IV ONE (00:08)
--- NOTE | 2020-04-04 00:12 | ER Document Report ---
ED General - General Chief Complaint: Unresponsive Stated Complaint: UNRESPONSIVE Time Seen by Provider: 04/03/20 23:56 Primary Care Provider: MARTELL BLOCK DO [Primary Care Provider] - Follow up as needed TRAVEL OUTSIDE OF THE [place] IN LAST 30 DAYS: No - HPI Context: This is a 74-year-old male presenting to the ED via EMS status post cardiorespiratory arrest, presenting with ROSC after treatment by EMS. Patient has a history of CHF and atrial fibrillation. Patient was seen here yesterday complaining of unilateral leg pain and had an arterial ultrasound done as opposed to a Doppler ultrasound done. The ultrasound study was negative. The patient reportedly was at home tonight and apparently had a syncopal episode and collapsed right in front of the patient's daughter who is a chiropractor. The daughter called 911 and started CPR until first responders arrived. Patient had no complaints prior to onset of symptoms. Patient was seen here earlier yesterday for the leg pain and had a negative Covid screen. Patient was not complaining of shortness of breath, chest pain, loss of sense of taste or loss of sense of smell, known exposure to persons positive for COVID-19 or persons under investigation for COVID-19. Patient arrives to the ED unresponsive after the OPA was placed and ketamine was given. 2 IO's were placed in route. Associated symptoms: None Exacerbated by: Other - Unknown Relieved by: Other - Unknown - Related Data Allergies/Adverse Reactions: No Known Allergies Allergy (Verified 04/08/16 05:32) Past Medical History - General Information source: Emergency Med Personnel - Social History Smoking Status: Unknown if Ever Smoked Drug Abuse: None Lives with: Family Family History: Reviewed & Not Pertinent - Past Medical History Cardiac Medical History: Reports: Hx Atrial Fibrillation, Hx Hypercholest erolemia, Hx Hypertension Denies: Hx Congestive Heart Failure Endocrine Medical History: Reports: Hx Diabetes Mellitus Type 2 Malignancy Medical History: Reports Hx Prostate Cancer Past Surgical History: Reports: Hx Cardiac Catheterization, Hx Tonsillectomy, Other - Circumcision - Immunizations Hx Diphtheria, Pertussis, Tetanus Vaccination: Yes Review of Systems - Review of Systems -: Yes ROS unobtainable due to patient's medical condition Physical Exam - Vital signs Vitals: Resp 14 04/03/20 23:33 - Notes Notes: CONSTITUTIONAL Initial vital signs reviewed. Patient has a GCS of 3. HEAD [Atraumatic, Normocephalic.] EYES No scleral icterus or conjunctival injection noted ENT [External ears normal to inspection, Nose examination normal, Mouth normal to inspection.] NECK [Normal ROM, No jugular venous distention, No meningeal signs, ] RESPIRATORY CHEST [Chest is nontender, Breath sounds normal and patient is being bagged, patient does occasionally breathe spontaneously on his own] CARDIOVASCULAR [Bradycardia, No murmurs, Normal S1 S2, No rub, No gallop.] ABDOMEN [Abdomen is nontender, No pulsatile masses, No other masses, Bowel sounds normal, No distension, No peritoneal signs, No hernias.] UPPER EXTREMITY [Inspection normal, No cyanosis, No clubbing, No edema, LOWER EXTREMITY Bilateral I/O's are present in the patient's proximal lower legs. NEURO Patient gags and coughs during airway interventions. SKIN [Skin is warm, Skin is dry, Skin is normal color.] PSYCHIATRIC [Unable to assess affect. ] Course - Re-evaluation Re-evalutation: 04/04/20 03:05 Low digoxin level was discussed with Dr. Hayes. Dr. Hayes recommended going ahead and giving some calcium and shipping the patient to a higher level of care because he may need a AICD. However when this MD went into the room to see the patient it appears he has P waves and is in a normal sinus rhythm. Will go ahead with the calcium as Dr. Alvarez recommended but I am going to at least speak to the machine brusher service about whether this patient can be managed here at least initially. 04/04/20 04:12 Case discussed with machine brusher service. [facility], [facility] machine brusher agrees that patient should be in our facility with interventional cath capacity and EP capabilities. Patient's family members were updated by this MD. 04/04/20 04:55 [facility] critical care transport has arrived to take the patient to [facility]. This MD went into the room to check on the patient and speak with family. Patient has a normal sinus rhythm with a heart rate in the 60s his O2 sat 100% of blood pressure 129/96 at this time. - Vital Signs Vital signs: Temp Pulse Resp BP Pulse Ox 16 129/93 H 100 04/04/20 04:45 04/04/20 04:45 04/04/20 04:45 - Laboratory Result Diagrams: 04/03/20 23:55 04/03/20 23:55 Laboratory results interpreted by me: 04/03/20 04/03/20 04/03/20 23:55 23:55 23:55 Hgb 12.1 L MCHC 31.8 L RDW 16.5 H PT 16.7 H ABG pH ABG pO2 ABG Total CO2 ABG O2 Saturation Glucose 273 H AST 500 H ALT 384 H NT-Pro-B Natriuret Pep Total Protein 5.6 L Albumin 3.2 L Digoxin 04/03/20 04/03/20 04/04/20 23:55 23:55 00:16 Hgb MCHC RDW PT ABG pH 7.29 L ABG pO2 239.8 H ABG Total CO2 22.4 L ABG O2 Saturation 99.4 H Glucose AST ALT NT-Pro-B Natriuret Pep 36601 H Total Protein Albumin Digoxin 0.52 L - Diagnostic Test Radiology reviewed: Reports reviewed - EKG Interpretation by Me Additional EKG results interpreted by me: 04/04/20 00:09 EKG obtained on 04/03/2020 at 2352 hrs. was interpreted by this MD. Findings: Bradycardia is present, rate of 52, right bundle branch is present, QTC is 495, there are T wave inversions present in leads V1 through V6. When compared to EKG from 01/20/2020 morphology is changed. Prior EKG showed atrial fib with a rate of 96 left axis deviation and some borderline T wave abnormalities in diffuse leads. Impression: Abnormal EKG with no discernible P waves and right bundle branch block as well as T wave depression in V1 through V6. 04/04/20 04:13 Repeat EKG done on 04/04/2020 at 0307 hrs. was interpreted by this MD. Findings patient now has a sinus rhythm, rate 64 VA interval appears within normal limits, there appears to be a nonspecific intra ventricular conduction delay, T wave inversion still persist in leads V2 through V6, no obvious patterns of ST elevations or reciprocal depressions are appreciated on this EKG. When compared to prior EKG, it seems that the patient has converted to a sinus rhythm from the junctional rhythm and has a QRS complex that is at least slightly narrower in a ppearance. Impression: Sinus rhythm with T wave inversions in V2 through V6. - Consults Dr. Hayes Time consulted: 00:54 Reason for consultation: 04/04/20 00:55 Dr. Alvarez was reviewing EKGs and noticed the patient's EKG from this evening. He believes that the patient may well be in third-degree heart block. Initially he recommended giving the patient some calcium. After review of the prescriptions, it was found that the patient is on digoxin and he filled the prescription on 03/17/2020. Because of this Dr. Villasenor recommended holding on the calcium and said to check a dig level and agrees with checking patient for a PE. Lan Coto, [employer], Senior Procurement Manager Service Time consulted: 03:40 - [employer] Nnamdi recommended transfer to facility with interventional cath and EP capabilities Reason for consultation: 04/04/20 03:52 Patient intubated, status post cardiac arrest with ROSC, hypotensive Dr. Fidel Hensley, [facility] Time consulted: 03:50 - Dr. Hensley accepted pt for transfer to his facility. He recommended hypothermia protocol to 36 degrees celcius and repeat troponin Reason for consultation: 04/04/20 03:55 Status post cardiac arrest, ROSC, EKG changes, history of CHF and A. fib Procedures - Intubation Orotracheal Time of Intubation: 23:50 Airway evaluation: Large tongue, Obese Mallampati Classification: Class 4 Medications: Etomidate, Succinylcholine Intubation method: Orotracheal Blade type: Vargas Blade size: 4 Equipment used: Glidescope ETT size: 8.0 ETT secured at: Lips ETT secured at (cm): 24 Breath Sounds after Intubation: Equal End tidal CO2 confirmed: Yes Post Intubation Xray: Yes Intubation Complications: No complications Critical Care Note - Critical Care Note Total time excluding time spent on procedures (mins): 120 - management of patient s/p cardiac arrest with ROSC, airway management, blood pressure management, evaluation for etiology of cardiac arrest Discharge - Discharge Clinical Impression: Cardiopulmonary arrest with successful resuscitation, Signs of return of spontaneous circulation, Acute electrocardiogram changes Hypotension Qualifiers: Hypotension type: unspecified hypotension type Qualified Code(s): I95.9 - Hypotension, unspecified CHF (congestive heart failure) Qualifiers: Heart failure type: unspecified Heart failure chronicity: unspecified Qualified Code(s): I50.9 - Heart failure, unspecified Condition: Critical Disposition: [facility] Referrals: UMAIR,MARTELL, DO [Primary Care Provider] - Follow up as needed
[2020-04-04 00:32] LABS: INTERNATIONAL RATION (INR) 1.33; PARTIAL THROMBOPLASTIN TIME 31.1 SEC (23.5-35.8); PROTHROMBIN TIME 16.7 SEC (11.4-15.4)
[2020-04-04 00:35] LABS: ABSOLUTE EOSINOPHILS # (AUTO) 0.1 10^3/uL (0.0-0.6); ABSOLUTE LYMPHOCYTES (AUTO) 1.7 10^3/uL (0.5-4.7); ABSOLUTE MONOCYTES (AUTO) 0.2 10^3/uL (0.1-1.4); ABSOLUTE NEUT (AUTO) 4.6 10^3/uL (1.7-8.2); BASOPHILS % (AUTO) 0.4 % (0-2); EOSINOPHILS % (AUTO) 1.2 % (0-6); HEMATOCRIT 37.9 % (37.9-51.0); HEMOGLOBIN 12.1 g/dL (13.5-17.0); LYMPHOCYTES % (AUTO) 25.6 % (13-45); MEAN CORPUSCULAR HEMOGLOBIN 27.3 pg (27.0-33.4); MEAN CORPUSCULAR HGB CONC 31.8 g/dL (32.0-36.0); MEAN CORPUSCULAR VOLUME 86 fl (80-97); MONOCYTES % (AUTO) 3.5 % (3-13); PLATELET COUNT 203 10^3/uL (150-450); RED BLOOD COUNT 4.42 10^6/uL (4.35-5.55); RED CELL DISTRIBUTION WIDTH 16.5 % (11.5-14.0); SEGMENTED NEUTROPHILS % (AUTO) 69.3 % (42-78); TOTAL CELLS COUNTED % (AUTO) 100 %; WHITE BLOOD COUNT 6.6 10^3/uL (4.0-10.5)
--- NOTE | 2020-04-04 00:37 | EKG REPORT ---
SEVERITY:- ABNORMAL ECG - ACCELERATED JUNCTIONAL ESCAPE RHYTHM RIGHT BUNDLE BRANCH BLOCK LVH WITH IVCD AND SECONDARY REPOL ABNRM REGULARISATION OF RR INTERVALS IN PATIENT WITH ATIAL FIB SUGGESTIVE OF CHB.CHECK MEDS TESS. DIGOXIN : Confirmed by: Jerri Alvarez MD 04-Apr-2020 00:37:18
--- NOTE | 2020-04-04 00:38 | RADIOLOGY REPORT (SQ) ---
EXAM DESCRIPTION: X-RAY CHEST- One View CLINICAL HISTORY: Evaluate endotracheal tube and enteric tube placement. COMPARISON: April 03, 2020 at 9:13 AM. TECHNIQUE: Single view of the chest. Study submitted at 11:55 PM. FINDINGS: There are overlying EKG leads. Additionally, an electronic device overlies the mid upper abdomen. Patient is status post placement of endotracheal tube with tip approximately 4.2 cm above the samia. Enteric tube is seen coursing below the diaphragm, beyond the imaged portion of the abdomen. There are low lung volumes with compressive changes. The cardiomediastinal silhouette is persistently enlarged. The osseous structures are stable. IMPRESSION: Status post placement of enteric tube and endotracheal tube in position as detailed above.
[2020-04-04 00:48] LABS: ARTERIAL BLOOD BASE EXCESS -5.5 mmol/L; ARTERIAL BLOOD H2CO3 1.35 mmol/L (1.05-1.35); ARTERIAL BLOOD O2 SATURATION 99.4 % (94-98); ARTERIAL BLOOD PH 7.29 (7.35-7.45); ARTERIAL BLOOD PO2 239.8 mmHg (80-100); ARTERIAL BLOOD TOTAL CO2 22.4 mmol/L (23-27)
[2020-04-04 00:52] LABS: ALBUMIN 3.2 g/dL (3.5-5.0); ALKALINE PHOSPHATASE 91 U/L (38-126); ANION GAP 15 (5-19); ASPARTATE AMINO TRANSFERASE 500 U/L (17-59); BILIRUBIN,DIRECT 0.4 mg/dL (0.0-0.4); BILIRUBIN,TOTAL 1.3 mg/dL (0.2-1.3); BLOOD UREA NITROGEN 15 mg/dL (7-20); CALCIUM 8.7 mg/dL (8.4-10.2); CARBON DIOXIDE 22 mmol/L (22-30); CHLORIDE 101 mmol/L (98-107); GLUCOSE 273 mg/dL (75-110); POTASSIUM 3.7 mmol/L (3.6-5.0); TOTAL PROTEIN 5.6 g/dL (6.3-8.2)
[2020-04-04 00:54] LABS: ARTERIAL BLOOD FIO2 100%
[2020-04-04 01:07] LABS: NT PRO BNP 15500 pg/mL (<450); TROPONIN I < 0.012 ng/mL
--- NOTE | 2020-04-04 01:29 | RADIOLOGY REPORT (SQ) ---
EXAM DESCRIPTION: CTA CHEST RadLex: CT CHEST ANGIOGRAPHY WITHOUT THEN WITH IV CONTRAST CLINICAL HISTORY: 74 years Male; resp arrest, recent visit for leg pain, ?pe CREAT 0.74; TECHNIQUE: CT angiogram of the chest using intravenous contrast. MIP reconstructions were performed. All CT scans at this facility use dose modulation, iterative reconstruction, and/or weight based dosing when appropriate to reduce radiation dose to as low as reasonably achievable. COMPARISON: None. FINDINGS: Pulmonary arteries: No filling defects in the central pulmonary arteries. Lungs: There is mild posterior atelectasis in both lungs. No pneumothorax or pleural effusion. Mediastinum: Endotracheal and enteric tubes are partially visualized. No pericardial effusion. No mediastinal adenopathy. Bones:No acute bone findings. IMPRESSION: 1. No CT evidence for pulmonary embolism 2. Dependent atelectasis in both lungs, but no acute infiltrates
[2020-04-04] MEDS ORDERED: CALCIUM GLUCONATE 1000 MG/10 ML INJ IV ONE ×2 (02:53→03:00)
[2020-04-04 04:59] VITALS: BP 129/96
--- NOTE | 2020-04-04 07:34 | EKG REPORT ---
SEVERITY:- ABNORMAL ECG - SINUS RHYTHM PROBABLE LEFT ATRIAL ABNORMALITY LVH WITH IVCD, LAD AND SECONDARY REPOL ABNRM : Confirmed by: Bishnu Patton MD 04-Apr-2020 07:33:37
[2020-04-04] MEDS ORDERED: SUCCINYLCHOLINE CHLORIDE INJ 200 MG/10 ML VIAL ONE (14:17)
== END 2020-04-04 05:09 | disposition short-term general hospital (02) ==
LOC: ER 23:34
DX: I46.9 Cardiac arrest, cause unspecified (principal); I95.9 Hypotension, unspecified; I11.0 Hypertensive heart disease with heart failure; I50.9 Heart failure, unspecified; I45.10 Unspecified right bundle-branch block; E11.9 Type 2 diabetes mellitus without complications; Z85.46 Personal history of malignant neoplasm of prostate
CPT/HCPCS: 31500; 93005 ×2; 99291; 96375; 96365; 96366; 36415; 82803; 80162; 85025; 85610; 85730; 80053; 84484; 83880; 71045; 71275; 94660; 93010 ×2; J0610; J3490 ×3; J2060; J0330; J7060; 94002